=== PATIENT | male | born 1955 | race Caucasian/White ===

== ENCOUNTER 2023-03-11 09:52 | Day surgery (SDC) | payer OTHER ==
[2023-03-10 14:57] LABS: Potassium 4.3 mEq/L (3.5-5.1)
[2023-03-11] MEDS ORDERED: NA CHLORIDE 0.9% 1,000 ML ONE (10:28)
[2023-03-11] MEDS ORDERED: propofoL 200 MG/20 ML VIAL IV ONE ×2 (11:44→11:45)
[2023-03-11] MEDS ORDERED: LIDOCAINE 1% MPF 2 ML AMPULE ONE (11:45)
[2023-03-11 12:47] VITALS: TEMP 97.1
[2023-03-11 12:48] VITALS: BP 119/79; O2SAT 99
--- NOTE | 2023-03-11 13:39 | EKG ---
Test Date: 2023-03-10 Test Time: 14:17:02 Employment Services Director: CASTRO MEASUREMENT RESULTS: Intervals: Rate: 60 RI: 172 QRSD: 80 QT: 412 QTc: 412 [place]: P: 106 RI: 172 QRS: 58 T: 77 INTERPRETIVE STATEMENTS: Sinus rhythm with premature atrial complexes with aberrant conduction Otherwise normal ECG No previous ECG available for comparison Electronically Signed On 03-11-23 13:36:54 CDT by Jean Luke
== END 2023-03-11 12:45 | disposition home or self-care (01) ==
LOC: OR 09:52
PROVIDERS: ATTEND Surgery
PROC: 0DBM8ZX Excision of Descending Colon, Via Natural or Artificial Opening Endoscopic, Diagnostic (ICD-10-PCS; principal; 2023-03-11 11:00)
DX: Z12.11 Encounter for screening for malignant neoplasm of colon (principal); N42.9 Disorder of prostate, unspecified; K57.32 Diverticulitis of large intestine without perforation or abscess without bleeding; K64.8 Other hemorrhoids; K63.5 Polyp of colon
CPT/HCPCS: 36415; 80048; 82947; 88305; 93005; J2704; J7030